=== PATIENT | female | born 1995 | race Caucasian/White ===

== ENCOUNTER 2021-11-30 22:12 | Emergency (ER) | payer OTHER ==
[2021-11-30] MEDS ORDERED: Dexamethasone 10 MG/ML VIAL ONE (23:10)
== END 2021-11-30 23:01 | disposition home or self-care (01) ==
LOC: CSHERS 22:12
DX: J02.9 Acute pharyngitis, unspecified (principal); F17.290 Nicotine dependence, other tobacco product, uncomplicated
CPT/HCPCS: 99282; J1100

== ENCOUNTER 2022-03-24 19:53 | Emergency (ER) | payer OTHER ==
[2022-03-24] MEDS ORDERED: Dexamethasone 4 MG TAB ONE (20:38)
[2022-03-24] MEDS ORDERED: Bicillin LA 1.2 MILLION UNITS/2 ML SYRINGE IM SCH (20:45)
[2022-03-24] MEDS ORDERED: Bicillin CR 1.2 MILL UNITS/2 ML SYRINGE IM SCH (20:45)
== END 2022-03-24 21:05 | disposition home or self-care (01) ==
LOC: CSHERS 19:53
DX: J02.0 Streptococcal pharyngitis (principal)
CPT/HCPCS: 96372; 99283; J0558; J0561; J8540

== ENCOUNTER 2022-06-04 17:30 | Emergency (ER) | payer OTHER | END 2022-06-04 20:47 | disposition home or self-care (01) | LOC: CSHERS 17:30 | DX: O20.0 Threatened abortion (principal); Z3A.01 Less than 8 weeks gestation of pregnancy | CPT/HCPCS: 76856; 84702; 86900; 86901 ==

== ENCOUNTER 2022-12-04 21:44 | Emergency (ER) | payer OTHER ==
[2022-12-05 00:14] LABS: SARS-CoV-2 NAA Rapid Test DETECTED (NotDetected)
== END 2022-12-04 23:46 | disposition home or self-care (01) ==
LOC: CSHERS 21:44
DX: U07.1 COVID-19 (principal)
CPT/HCPCS: 99283; U0002

== ENCOUNTER 2025-03-03 13:55 | Emergency (ER) | payer BC ==
[2025-03-03] MEDS ORDERED: Dexamethasone 10 MG/ML VIAL ONE (17:10)
== END 2025-03-03 17:15 | disposition home or self-care (01) ==
LOC: CSHERS 13:55
DX: J02.8 Acute pharyngitis due to other specified organisms (principal); B96.89 Other specified bacterial agents as the cause of diseases classified elsewhere
CPT/HCPCS: 71046; 87081; 87428; 87430; J1100